=== PATIENT | female | born 1935 | race Caucasian/White ===

== ENCOUNTER 2018-02-08 11:14 | Emergency (ER) | payer MEDICARE ==
[2018-02-08 12:01] LABS: ABS Basophils 0 10^3/ul (0-0.2); ABS Eosinophils 0.2 10^3/ul (0-0.6); ABS Monocytes 0.4 10^3/ul (0-0.8); ABS Neutrophils 2.4 10^3/ul (1.5-7.7); ABS Nucleated RBC 0 10^3/ul; Eosinophil % 4.1 % (0-6); Hematocrit 37 % (35-47); Hemoglobin 12.6 g/dl (12.0-16.0); Lymphocyte % 38.8 % (25-47); Mean Corpuscular HGB Conc 34 g/dl (31-36); Mean Corpuscular Hemoglobin 31 pg (27-31); Mean Corpuscular Volume 91 fL (80-97); Mean Platelet Volume 7.6 um3 (7.4-10.4); Nucleated Red Blood Cells % 0; Platelet Count 160 10^3/ul (150-450); Red Blood Count 4.09 10^6/ul (4.0-5.4); Red Cell Distribution Width 16 % (10.5-15); White Blood Count 5.1 10^3/ul (3.5-10.8)
--- NOTE | 2018-02-08 12:12 | RAD ---
HISTORY: Dizziness, weakness, disorientation COMPARISONS: May 01, 2016 VIEWS: 1: frontal portable view of the chest at 11:55 AM FINDINGS: LINES AND TUBES: Left sided pacemaker is noted. Dorsal column stimulator leads are noted. CARDIOMEDIASTINAL SILHOUETTE: The cardiomediastinal silhouette is normal for portable technique. PLEURA: The costophrenic angles are sharp. No pleural abnormalities are noted. LUNG PARENCHYMA: The lungs are clear. ABDOMEN: The upper abdomen is clear. There is no subphrenic gas. BONES AND SOFT TISSUES: No bone or soft tissue abnormalities are noted. IMPRESSION: NO ACTIVE CARDIOPULMONARY DISEASE.
[2018-02-08 12:16] LABS: EGFR Non-African American 52.8 (>60)
[2018-02-08] MEDS ORDERED: Magnesium Oxide TAB* 400 MG PO ONE (12:25)
--- NOTE | 2018-02-08 12:32 | RAD ---
HISTORY: Dizziness COMPARISONS: February 21, 2013 TECHNIQUE: Multiple contiguous axial CT scans were obtained of the head without intravenous contrast. FINDINGS: HEMORRHAGE/INFARCT: There is no hemorrhage or acute infarct. MASSES/SHIFT: There is no mass or shift. EXTRA-AXIAL SPACES: There are no extra-axial fluid collections. SULCI AND VENTRICLES: The sulci and ventricles are normal in size and position for the patient's stated age. CEREBRUM: There is hypoattenuation of the periventricular and subcortical white matter. BRAINSTEM: There are no focal parenchymal abnormalities. CEREBELLUM: There are no focal parenchymal abnormalities. VESSELS: The vessels are grossly normal. PARANASAL SINUSES: The paranasal sinuses are clear. ORBITS: The orbits are unremarkable. BONES AND SOFT TISSUE: No bone or soft tissue abnormalities are noted. OTHER: None IMPRESSION: NO ACUTE INTRACRANIAL PATHOLOGY. CHRONIC SMALL VESSEL ISCHEMIC CHANGES.
[2018-02-08 13:58] LABS: Urine Appearance Clear; Urine Blood Negative (Negative); Urine Color Straw; Urine Ketones Negative (Negative); Urine Protein Negative (Negative); Urine Specific Gravity 1.009 (1.010-1.030); Urine Urobilinogen Negative (Negative)
--- NOTE | 2018-02-08 14:27 | ED ---
Param Cook Gabriel, scribed for Judson Matthews MD on 02/08/18 at 1141 . Dizziness - HPI Summary HPI Summary: This patient is a 82 year old F presenting to [facility] accompanied by her son with a chief complaint of dizziness that occurred this morning after she woke up but got worse while she was in spiritism. She states she feels off balance and that it is not similar to her vertigo, which she has had before. Symptoms aggravated by movement. Patient reports general malaise. Patient denies STORM, neck pain, SOB, CP , double vision, ABD pain, and n/v/d. Hx WI, CHF, and pacer. The patient is on two lasixs. - History Of Current Complaint Chief Complaint: EDDizziness Stated Complaint: DIZZINESS,WEAKNESS,DISORIENTED Time Seen by Provider: 02/08/18 11:34 Hx Obtained From: Patient Onset/Duration: Suddenly Timing: Constant Severity Initially: Mild Severity Currently: Moderate Character: Dizzy Aggravating Factor(s): Other - movement Associated Signs And Symptoms: Positive: Negative - CP, ABD pain, n/v/d, see hpi - Allergies/Home Medications Allergies/Adverse Reactions: Allergies Allergy/AdvReac Type Severity Reaction Status Date / Time carvedilol Allergy Unknown Verified 02/08/18 11:17 Reaction Details tetracycline Allergy Unknown Verified 02/08/18 11:17 Reaction Details thalidomide Allergy Blisters Verified 02/08/18 11:17 Home Medications: Home Medications Gabapentin CAP(*) [Neurontin 100 mg CAP(*)] 200 mg PO TID 02/08/18 [History Confirmed 02/08/18] HYDROcodone/ACETAMIN 5-325 MG* [[place] 5-325 TAB*] 1 tab PO .Q4-6H PRN 02/08/18 [ History Confirmed 02/08/18] Lisinopril TAB* [Prinivil TAB*] 40 mg PO DAILY 02/08/18 [History Confirmed 02/08] Omeprazole CAP* [Prilosec CAP* 20 MG] 20 mg PO DAILY 02/08/18 [History Confirmed 02/08/18] PMH/Surg Hx/FS Hx/Imm Hx Endocrine/Hematology History: Reports: Hx Anticoagulant Therapy - ASPIRIN, Hx Thyroid Disease Denies: Hx Diabetes Cardiovascular History: Reports: Hx Angina, 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 lungs clear bilat,mild edema LE, Hx Hypercholesterolemia, Hx Hypertension, Hx Myocardial Infarction, Hx Pacemaker/ICD - 10/, Other Cardiovascular Problems/Disorders - BLOOD CLOT INVOLVING PACEMAKER 08/2015 Respiratory History: Denies: Hx Asthma, Hx Chronic Obstructive Pulmonary Disease (COPD) GI History: Reports: Hx Gastroesophageal Reflux Disease, Other GI Disorders - constipation History: Reports: Hx Renal Disease - abnormal gfr Musculoskeletal History: Reports: Hx Arthritis - hands, shoulders, knees, Hx Back Problems, Hx Gout Sensory History: Reports: Hx Contacts or Glasses Opthamlomology History: Reports: Hx Contacts or Glasses Neurological History: Denies: Hx Dementia, Hx Seizures Psychiatric History: Reports: Hx Depression - passed 3 years ago Denies: Hx Substance Abuse - Cancer History Cancer Type, Location and Year: Basal Cell Carcinoma and Squamous Cell Carcinoma - Surgical History Surgery Procedure, Year, and Place: =2014 appendectomy, cholecystectomy, hysterectomy, detached retina repaired, spinal surgeries x 4, benign breast tumor removed [id number] Infectious Disease History: No Infectious Disease History: Denies: Hx Hepatitis, Hx Human Immunodeficiency Virus (HIV), Traveled Outside the [place] in Last 30 Days - Family History Known Family History: Positive: Cardiac Disease, Hypertension - Social History Alcohol Use: None Substance Use Type: Reports: None Smoking Status (MU): Never Smoked Tobacco Review of Systems Constitutional: Other - general malaise Negative: Blurred Vision Negative: Chest Pain Negative: Shortness Of Breath Negative: Abdominal Pain, Vomiting, Diarrhea, Nausea Musculoskeletal: Negative - neck pain Neurological: Other - dizziness Negative: Headache All Other Systems Reviewed And Are Negative: Yes Physical Exam - Summary Physical Exam Summary: VITAL SIGNS: Reviewed. GENERAL: Patient is a well-developed and nourished female who is lying comfortable in the stretcher. Patient is not in any acute respiratory distress. HEAD AND FACE: No signs of trauma. No ecchymosis, hematomas or skull depressions. No sinus tenderness. EYES: PERRLA, EOMI x 2, No injected conjunctiva, no nystagmus. EARS: Hearing grossly intact. Ear canals and tympanic membranes are within normal limits. MOUTH: Oropharynx within normal limits. NECK: Supple, trachea is midline, no adenopathy, no JVD, no carotid bruit, no c- spine tenderness, neck with full ROM. CHEST: Symmetric, no tenderness at palpation LUNGS: Clear to auscultation bilaterally. No wheezing or crackles. CVS: Regular rate and rhythm, S1 and S2 present, no gallops appreciated. There is and injection systolic murmur 4/6 ABDOMEN: Soft, non-tender. No signs of distention. No rebound no guarding, and no masses palpated. Bowel sounds are normal. EXTREMITIES: FROM in all major joints, no edema, no cyanosis or clubbing. NEURO: Alert and oriented x 3. No acute neurological deficits. Speech is normal and follows commands. SKIN: Dry and warm Triage Information Reviewed: Yes Vital Signs On Initial Exam: Initial Vitals Temp Pulse Resp BP Pulse Ox 97 F 55 16 140/63 97 02/08/18 11:20 02/08/18 11:20 02/08/18 11:20 02/08/18 11:20 02/08/18 11:20 Vital Signs Reviewed: Yes Diagnostics - Vital Signs Vital Signs Temp Pulse Resp BP Pulse Ox 02/08/18 11:20 97 F 55 16 140/63 97 - Laboratory Lab Results: Lab Results 02/08/18 02/08/18 02/08/18 Range/Units 11:50 11:50 11:50 WBC 5.1 (3.5-10.8) 10^3/ul RBC 4.09 (4.0-5.4) 10^6/ul Hgb 12.6 (12.0-16.0) g/dl Hct 37 (35-47) % MCV 91 (80-97) fL MCH 31 (27-31) pg MCHC 34 (31-36) g/dl RDW 16 H (10.5-15) % Plt Count 160 (150-450) 10^3/ul MPV 7.6 (7.4-10.4) um3 Neut % (Auto) 47.6 (38-83) % Lymph % (Auto) 38.8 (25-47) % Swisher % (Auto) 8.5 H (0-7) % Eos % (Auto) 4.1 (0-6) % Baso % (Auto) 1.0 (0-2) % Absolute Neuts (auto) 2.4 (1.5-7.7) 10^3/ul Absolute Lymphs (auto) 2.0 (1.0-4.8) 10^3/ul Absolute Monos (auto) 0.4 (0-0.8) 10^3/ul Absolute Eos (auto) 0.2 (0-0.6) 10^3/ul Absolute Basos (auto) 0 (0-0.2) 10^3/ul Absolute Nucleated RBC 0 10^3/ul Nucleated RBC % 0 Sodium 135 L (139-145) mmol/L Potassium 4.4 (3.5-5.0) mmol/L Chloride 106 (101-111) mmol/L Carbon Dioxide 24 (22-32) mmol/L Anion Gap 5 (2-11) mmol/L BUN 33 H (6-24) mg/dL Creatinine 1.00 H (0.51-0.95) mg/dL Est GFR ( Amer) 67.9 (>60) Est GFR (Non-Af Amer) 52.8 (>60) BUN/Creatinine Ratio 33.0 H (8-20) Glucose 107 H (70-100) mg/dL Lactic Acid 0.9 (0.5-2.0) mmol/L Calcium 10.3 (8.6-10.3) mg/dL Magnesium 1.7 L (1.9-2.7) mg/dL Total Bilirubin 0.60 (0.2-1.0) mg/dL AST 24 (13-39) U/L ALT 28 (7-52) U/L Alkaline Phosphatase 66 (34-104) U/L Total Creatine Kinase 281 H (10-223) U/L Troponin I 0.00 (<0.04) ng/mL C-Reactive Protein 1.11 (< 5.00) mg/L B-Natriuretic Peptide ( - 100) pg/mL Total Protein 7.0 (6.4-8.9) g/dL Albumin 4.4 (3.2-5.2) g/dL Globulin 2.6 (2-4) g/dL Albumin/Globulin Ratio 1.7 (1-3) TSH 0.72 (0.34-5.60) mcIU/mL Urine Color Urine Appearance Urine pH (5-9) Ur Specific Hardin (1.010-1.030) Urine Protein (Negative) Urine Ketones (Negative) Urine Blood (Negative) Urine Nitrate (Negative) Urine Bilirubin (Negative) Urine Urobilinogen (Negative) Ur Leukocyte Esterase (Negative) Urine Glucose (Negative) 02/08/18 02/08/18 Range/Units 11:50 13:31 WBC (3.5-10.8) 10^3/ul RBC (4.0-5.4) 10^6/ul Hgb (12.0-16.0) g/dl Hct (35-47) % MCV (80-97) fL MCH (27-31) pg MCHC (31-36) g/dl RDW (10.5-15) % Plt Count (150-450) 10^3/ul MPV (7.4-10.4) um3 Neut % (Auto) (38-83) % Lymph % (Auto) (25-47) % Swisher % (Auto) (0-7) % Eos % (Auto) (0-6) % Baso % (Auto) (0-2) % Absolute Neuts (auto) (1.5-7.7) 10^3/ul Absolute Lymphs (auto) (1.0-4.8) 10^3/ul Absolute Monos (auto) (0-0.8) 10^3/ul Absolute Eos (auto) (0-0.6) 10^3/ul Absolute Basos (auto) (0-0.2) 10^3/ul Absolute Nucleated RBC 10^3/ul Nucleated RBC % Sodium (139-145) mmol/L Potassium (3.5-5.0) mmol/L Chloride (101-111) mmol/L Carbon Dioxide (22-32) mmol/L Anion Gap (2-11) mmol/L BUN (6-24) mg/dL Creatinine (0.51-0.95) mg/dL Est GFR ( Amer) (>60) Est GFR (Non-Af Amer) (>60) BUN/Creatinine Ratio (8-20) Glucose (70-100) mg/dL Lactic Acid (0.5-2.0) mmol/L Calcium (8.6-10.3) mg/dL Magnesium (1.9-2.7) mg/dL Total Bilirubin (0.2-1.0) mg/dL AST (13-39) U/L ALT (7-52) U/L Alkaline Phosphatase (34-104) U/L Total Creatine Kinase (10-223) U/L Troponin I (<0.04) ng/mL C-Reactive Protein (< 5.00) mg/L B-Natriuretic Peptide 82 ( - 100) pg/mL Total Protein (6.4-8.9) g/dL Albumin (3.2-5.2) g/dL Globulin (2-4) g/dL Albumin/Globulin Ratio (1-3) TSH (0.34-5.60) mcIU/mL Urine Color Straw Urine Appearance Clear Urine pH 6.0 (5-9) Ur Specific Hardin 1.009 L (1.010-1.030) Urine Protein Negative (Negative) Urine Ketones Negative (Negative) Urine Blood Negative (Negative) Urine Nitrate Negative (Negative) Urine Bilirubin Negative (Negative) Urine Urobilinogen Negative (Negative) Ur Leukocyte Esterase Negative (Negative) Urine Glucose Negative (Negative) Result Diagrams: 02/08/18 11:50 02/08/18 11:50 Lab Statement: Any lab studies that have been ordered have been reviewed, and results considered in the medical decision making process. - Radiology CXR Radiology Interpretation Completed By: Radiologist - No acute intracranial pathology ED physician has reviewed this radiology report. - CT CT Brain CT Interpretation Completed By: Radiologist - NO ACUTE INTRACRANIAL PATHOLOGY. CHRONIC SMALL VESSEL ISCHEMIC CHANGES. ED physician has reviewed this radiology report. - EKG 11:48 Cardiac Rate: NL EKG Rhythm: Sinus Rhythm - at 56 BPM EKG Interpretation: atrial paced, no STEMI Re-Evaluation - Re-Evaluation First Eval Re-Evaluation Time: 13:23 Change: Improved Comment: The pt is feeling better. She is asymptomatic and has no complaints. She is able to ambulate and there is no disturbance in the gait. Dizzy Course/Dx - Course Assessment/Plan: Patient is an 82-year-old female who presents to the emergency department with chief complaint of dizziness. Patient has past medical history significant for CHF, dyslipidemia, hypertension. The patient reports no room spinning but she feels that she is going to pass out. Initially the patient was placed on a equipment monitor phototypesetting, IV access was obtained. This results without any significant abnormality except for B Valdes of 33 and creatinine of 1. Magnesium is 1.7 for which the patient was given magnesium by mouth. CPK is 281. Chest x-ray was read by radiology with no acute pathology. Head CT is negative for an acute intracranial pathology. A reassessment with the patient the patient reports that she is feeling better, headache dizziness have resolved. The patient went to the bathroom in her own and she had no disturbance in gait. Urinalysis is negative for UTI. I offered the patient admission to the hospitalist for near-syncopal episode however the patient declined. She reports that she would go home with both of her family members and they will watch for any lethargy, headaches, increasing dizziness, chest pain or palpitations. She will also follow with the primary care physician in 2 -3 days. She was recommended to return to the emergency department if she develops any other symptoms. She understands and agrees. All her concerns were addressed and she has no further questions. - Diagnoses Differential Diagnosis/HQI/PQRI: Coronary Artery Disease, CVA, Labyrinthitis, Meniere's Disease, Medication Reaction, Transient Ischemic Attack, Vasovagal Reaction Provider Diagnoses: Dizziness Discharge - Sign-Out/Discharge Documenting (check all that apply): Discharge/Admit/Transfer - Discharge Plan Condition: Stable Disposition: HOME Patient Education Materials: Dizziness (ED) Referrals: [place] ESCAMILLA,Mary Aguirre [Primary Care Provider] - 3 Days Additional Instructions: RETURN TO THE EMERGENCY DEPARTMENT FOR CHANGING OR WORSENING SYMPTOMS - Billing Disposition and Condition Condition: STABLE Disposition: HOME The documentation as recorded by the Param velasco Gabriel accurately reflects the service I personally performed and the decisions made by me, Judson Matthews MD.
[2018-02-08 14:44] VITALS: BP 147/82
== END 2018-02-08 14:43 | disposition home or self-care (01) ==
LOC: ED 11:14
DX: R42 Dizziness and giddiness (principal); R53.81 Other malaise; E07.9 Disorder of thyroid, unspecified; I20.9 Angina pectoris, unspecified; I11.0 Hypertensive heart disease with heart failure; I25.2 Old myocardial infarction; Z79.82 Long term (current) use of aspirin; E78.00 Pure hypercholesterolemia, unspecified; K21.9 Gastro-esophageal reflux disease without esophagitis; N28.9 Disorder of kidney and ureter, unspecified; F32.9 Major depressive disorder, single episode, unspecified; Z85.828 Personal history of other malignant neoplasm of skin; Z90.49 Acquired absence of other specified parts of digestive tract; Z95.810 Presence of automatic (implantable) cardiac defibrillator
CPT/HCPCS: 36415; 70450; 71045; 80053; 81003; 82550; 83605; 83735; 83880; 84443; 84484; 85025; 86140; 93005; 99283